=== PATIENT | male | born 1980 | race Caucasian/White ===

== ENCOUNTER 2020-01-27 11:56 | Outpatient (CLI) | payer OTHER, SELFPAY ==
--- NOTE | ~2020-01-27 | XR_ITS ---
XR foot LT min 3V DATE: 01/27/2020 12:22 INDICATION: Possible foreign body at the plantar surface along the mid shaft of the fourth and fifth metatarsals TECHNIQUE: 5 views COMPARISON: None FINDINGS: Mild plantar and posterior calcaneal enthesopathy. No fracture or dislocation, periosteal r eaction or bone destruction. No radiopaque soft tissue foreign body or subcutaneous emphysema is evid ent. IMPRESSION: No radiopaque soft tissue foreign body Reviewed, dictated and finalized at location A.
== END 2020-01-27 11:57 | disposition home or self-care (01) ==
LOC: ANHIMG 12:05
PROVIDERS: PCP Family Medicine; Visit Provider Family Medicine
DX: S90.852A Superficial foreign body, left foot, initial encounter (principal)
CPT/HCPCS: 73630

== ENCOUNTER 2022-06-03 16:33 | Emergency (ER) | payer BC, SELFPAY ==
[2022-06-03 17:01] VITALS: BP 136/63; PULSE 104; RESP 20; TEMP 36.3; O2SAT 99
--- NOTE | 2022-06-03 17:11 | ED.URI ---
HPI - URI/Sore Throat General Chief Complaint: Upper Respiratory Infection Stated Complaint: Sore Throat Time Seen by Provider: 06/03/22 17:12 History of Present Illness HPI Narrative: Param Monterrsoo is a 41-year-old male who [facility] with complaints of sore throat x1 day. Has a history of adenoid hypertrophy Related Data Home Medications Medication Instructions Recorded Confirmed loratadine 10 mg tablet (Claritin) 10 mg PO DAILY 03/25/22 06/03/22 fluticasone propionate 50 1 spray intranasal DAILY 06/03/22 06/03/22 mcg/actuation nasal spray,suspension Allergies Allergy/AdvReac Type Severity Reaction Status Date / Time No Known Allergies Allergy Verified 06/03/22 17:19 Review of Systems Review of Systems: CONSTITUTIONAL: Denies fever, chills, sweats. EYES: Denies visual changes, redness, discharge. ENT: Denies rhinorrhea, congestion, has sore throat, otalgia. CARDIOVASCULAR: Denies chest pain, palpitations, edema. RESPIRATORY: Denies dyspnea, wheezing, cough GASTROINTESTINAL: Denies abdominal pain, nausea, vomiting, diarrhea. GENITOURINARY: Denies dysuria, hematuria, abnormal discharge SKIN: Denies rash or itching. NEUROLOGIC: Denies numbness, or focal weakness. PSYCHIATRIC: Denies anxiety or depression. [facility] Past Medical History Medical History Adenoid hypertrophy Surgical History Surgical History History of carpal tunnel surgery Social History Social History Smoking status: Never smoker Comments At time of signature, I agree with nursing past medical, surgical, social and family history. There is no relevant family history pertinent to the presenting complaint. Exam Narrative: GENERAL: This is a well-nourished, well-developed patient, in mild distress. HEAD: normocephalic, atraumatic. EYES: Sclera clear/white. Vision is grossly intact. EARS: External ears normal, Hearing grossly intact. NOSE: External nose normal without nasal discharge, nares without redness, no rhinorrhea. THROAT: Mucous membranes moist, posterior pharynx erythema with enlarged tonsils (always enlarged) NECK: Neck supple, non-tender CARDIOVASCULAR: Tachycardic rate and rhythm without murmurs, gallops, or rubs. RESPIRATORY: Clear to auscultation. Breath sounds equal bilaterally. No wheezes, rales, or rhonchi. GASTROINTESTINAL: Not done SKIN: warm, intact with no suspicious lesions or rash, good texture and turgor. NEURO: awake, alert, and oriented to person, place and time. There were no obvious focal neurologic abnormalities. Steady gait EXTREMITIES: Normal range of motion. BACK: Nontender without deformity Course Course Emergency Course: Patient comes with sore throat has a history of ear infections and strep throat has no adenoid hypertrophy Strep positive start amoxicillin 875 1 twice daily x10 days Discussed 24 hours of antibiotics before return to work Level of Care: Express Care Visit Vital Signs Vital signs: Vital Signs Temperature 97.4 F L 06/03/22 17:01 Pulse Rate 104 H 06/03/22 17:01 Respiratory Rate 20 06/03/22 17:01 Blood Pressure 136/63 06/03/22 17:01 Pulse Oximetry 99 06/03/22 17:01 Oxygen Delivery Room Air 06/03/22 17:01 Temperature 97.4 F L 06/03/22 17:01 Pulse Rate 104 H 06/03/22 17:01 Respiratory Rate 20 06/03/22 17:01 Blood Pressure 136/63 06/03/22 17:01 Pulse Oximetry 99 06/03/22 17:01 Oxygen Delivery Room Air 06/03/22 17:01 MDM - URI/Sore Throat Differential Diagnosis Differential diagnosis: Likely upper respiratory infection, sinusitis, viral infection, pharyngitis and other Lab Data Labs: Strep Screen Positive Group A Strep *(Reference Range: Negative)* Critical Care Time Critical Care Time Cri
== END 2022-06-03 17:30 | disposition home or self-care (01) ==
PROVIDERS: Emergency Provider Nurse Practitioner; PCP Physician Assistant
DX: J02.0 Streptococcal pharyngitis (principal)
CPT/HCPCS: 87880; 99213; G0463

== ENCOUNTER 2022-07-01 18:14 | Emergency (ER) | payer BC, SELFPAY ==
[2022-07-01 18:44] VITALS: BP 144/68; PULSE 110; RESP 18; TEMP 36.8; O2SAT 99
--- NOTE | 2022-07-01 19:03 | ED.URI ---
HPI - URI/Sore Throat General Chief Complaint: Upper Respiratory Infection Stated Complaint: sorethroat Source: patient Mode of arrival: ambulatory Limitations: no limitations History of Present Illness HPI Narrative: This is a 41 uear old Related Data Home Medications Medication Instructions Recorded Confirmed loratadine 10 mg tablet (Claritin) 10 mg PO DAILY 03/25/22 07/01/22 fluticasone propionate 50 1 spray intranasal DAILY 06/03/22 07/01/22 mcg/actuation nasal spray,suspension Allergies Allergy/AdvReac Type Severity Reaction Status Date / Time No Known Allergies Allergy Verified 06/03/22 17:19 Review of Systems Review of Systems: sore throat All systems reviewed & are unremarkable except as noted in HPI and below PMFSH Past Medical History Medical History Adenoid hypertrophy Surgical History Surgical History History of carpal tunnel surgery Social History Social History Smoking status: Never smoker Exam Narrative: GENERAL:Well-appearing, well-nourished, and in no acute distress. HEAD:Normocephalic, atraumatic. EYES: PERRLA and EOMI. ENT: Nares clear, no rhinorrhea or epistaxis.enlarged tonsils that are touching each other which is normal for pt erythema CHEST: Clear to auscultation. No respiratory distress. HEART: Regular rate and rhythm. ABDOMEN: Soft, nontender, nondistended, normal active bowel sounds. EXTREMITIES: Normal range of motion. No edema. SKIN: Warm, dry, no rash. NEURO: No focal deficits. Alert and oriented x3. Course Course Level of Care: Express Care Visit Vital Signs Vital signs: Vital Signs Temperature 98.2 F 07/01/22 18:44 Pulse Rate 110 H 07/01/22 18:44 Respiratory Rate 18 07/01/22 18:44 Blood Pressure 144/68 H 07/01/22 18:44 Pulse Oximetry 99 07/01/22 18:44 Oxygen Delivery Room Air 07/01/22 18:44 Temperature 98.2 F 07/01/22 18:44 Pulse Rate 110 H 07/01/22 18:44 Respiratory Rate 18 07/01/22 18:44 Blood Pressure 144/68 H 07/01/22 18:44 Pulse Oximetry 99 07/01/22 18:44 Oxygen Delivery Room Air 07/01/22 18:44 MDM - URI/Sore Throat Differential Diagnosis Differential diagnosis: Likely upper respiratory infection, otitis media, sinusitis, viral infection, influenza and pharyngitis Discharge Plan Discharge Clinical Impression: Strep throat Condition: Stable Instructions: Strep Throat (DC), Tonsillitis (ED) Additional Instructions: Your strep test today was Positive. change your tooth brush in 2 days Salt water gargles may alleviate some of your throat discomfort. Take Tylenol and/or ibuprofen per the package instructions for pain/fever. Do not drink after anyone or let anyone drink after you Go to the ER if your symptoms become worse of if ANY new symptoms develop this Prescriptions: New clindamycin HCl 300 mg capsule 300 mg PO Q8H 10 Days Qty: 30 0RF Align 4 mg capsule 4 mg PO DAILY Qty: 10 0RF No Action fluticasone propionate [Flonase] 50 mcg/actuation [place],Suspension 1 spray INTRANASAL DAILY Rx Instructions: administer into each nostril loratadine [Claritin] 10 mg tablet 10 mg PO DAILY Follow-up/Referrals: Clayton Mccullough PA-C [Primary Care Provider] - Time of Disposition: 19:10
== END 2022-07-01 19:14 | disposition home or self-care (01) ==
PROVIDERS: Emergency Provider Nurse Practitioner Family; PCP Physician Assistant
DX: J02.0 Streptococcal pharyngitis (principal)
CPT/HCPCS: 87880; 99213; G0463